=== PATIENT | female | born 1960 | race Caucasian/White ===

== ENCOUNTER 2016-04-16 05:17 | Emergency (ER) | payer SELFPAY ==
[~2016-04-16] VITALS: Ht 165.1 cm; Wt 73.0 kg
[~2016-04-16 05:17] MED LIST: ASAC800T PO; ATEN1TAB75 PO; FOLI1TAB PO; KLOR20TA6 PO; LEXA20TA PO; LORA-475 PO; PERC10TA27 PO; PROM25SU8 PO; ZOFR4TAB3 SL
[2016-04-16 05:21] VITALS: BP 137/63; PULSE 71; RESP 18; TEMP 98; O2SAT 95
[2016-04-16] MEDS ORDERED: ONDANSETRON HCL 4 MG/2 ML VIAL IVP ONE (09:15)
[2016-04-16] MEDS ORDERED: SODIUM CHLORIDE 0.9% FLUSH 5 ML FLUSH IVF PRN (09:15)
[2016-04-16] MEDS ORDERED: FAMOTIDINE 20 MG TAB PO ONE (09:15)
[2016-04-16] MEDS ORDERED: ZOFR4TAB3 SL (09:18)
[2016-04-16] MEDS ORDERED: RANI150C PO (09:18)
--- NOTE | 2016-04-16 09:18 | PD ---
HPI Chief Complaint: Chest Pain Time Seen by Provider: 09:03 Travel History International Travel<30 days: No Contact w/Intl Traveler<30days: No Traveled to known affect area: No History of Present Illness HPI 55 old woman who presents to the emergency department complaining of epigastric abdominal/chest pain radiating into both rib cages along the costal margin and into her back. States the pain feels deep, and her bones. Symptoms been constant since yesterday. No exacerbating or alleviating factors. She does dorsal decreased appetite. Denies history of previous similar symptoms. Only abdominal surgical history prescription hysterectomy. She states she has a history of hypertension, RA, UC, she is on Percocet and sulfasalazine. History Past Medical History Narrative Medical Hypertension RA UC Menopausal: Yes : 1 Para: 0 Dilation and Curettage (D&C): Yes Social History Alcohol Use: No Tobacco Use: Yes (1 PPD) Allergies-Medications (Allergen,Severity, Reaction): Coded Allergies: Bee Sting (Verified Allergy, Severe, SWELLING, 04/16/16) Dairy (Verified Allergy, Severe, 04/16/16) Darvocet-N 100 (Verified Allergy, Severe, RASH, 04/16/16) Morphine (Verified Allergy, Severe, RASH, 04/16/16) Penicillin (Verified Allergy, Severe, RASH, 04/16/16) Prednisone (Verified Allergy, Severe, RASH, 04/16/16) Toradol (Verified Allergy, Severe, RASH, 04/16/16) Ultram (Verified Allergy, Severe, RASH, 04/16/16) Tramadol (Verified Allergy, Intermediate, 04/16/16) Bentyl (Unverified Allergy, Unknown, 04/16/16) Uncoded Allergies: demoral (Allergy, Unknown, 03/15/15) Reported Meds & Prescriptions Reported Meds & Active Scripts Active Ranitidine (Ranitidine HCl) 150 Mg Cap 150 Mg PO BID Zofran Odt (Ondansetron Odt) 4 Mg Tab 4 Mg SL Q8HR PRN May substitute non-ODT form. K-Dur (Potassium Chloride) 20 Meq Tabcr 20 Meq PO DAILY Zofran ODT (Ondansetron HCl) 4 Mg Tab 4 Mg SL Q6H PRN FOR NAUSEA/VOMITING Promethazine Hcl (Promethazine HCl) 25 Mg Tab 1 Tab PO Q6HPRN Reported Percocet 10-325 mg (Oxycodone-Acetaminophen 10-325 mg) Oxycodone 10/325 Acetaminophen Tab 2 Tab PO Q4H PRN Asacol Hd (Mesalamine) 800 Mg Tab 500 Mg PO BID Folate (Folic Acid) 1 Mg Tab 1 Mg PO DAILY Lexapro (Escitalopram Oxalate) 20 Mg Tab 25 Mg PO DAILY Tenormin (Atenolol) 100 Mg Tab 50 Mg PO DAILY Ativan (Lorazepam) 2 Mg Tab 2 Mg PO BIDPRN Review of Systems Except as stated in HPI: all other systems reviewed are Neg Physical Exam Narrative GENERAL: Well-appearing 55 old woman, no acute distress. SKIN: Warm and dry. HEAD: Atraumatic. Normocephalic. CARDIOVASCULAR: Regular rate and rhythm. No murmur appreciated. RESPIRATORY: No accessory muscle use. Clear to auscultation. Breath sounds equal bilaterally. GASTROINTESTINAL: Normal contour and appearance. Abdomen is soft. There is mild epigastric tenderness. NEUROLOGICAL: Awake and alert. No obvious cranial nerve deficits. Motor grossly within normal limits. Normal speech. PSYCHIATRIC: Appropriate mood and affect; insight and judgment normal. Data Data Last Documented VS Vital Signs Date Time Temp Pulse Resp B/P Pulse Ox O2 Delivery O2 Flow Rate FiO2 04/16/16 05:21 98.0 71 18 137/63 95 Room Air Orders Electrocardiogram (04/16/16 ) Complete Blood Count With Diff (04/16/16 09:11) Comprehensive Metabolic Panel (04/16/16 09:11) Lipase (04/16/16 09:11) Iv Access Insert/Monitor (04/16/16 09:11) Ondansetron Inj (Zofran Inj) (04/16/16 09:15) Sodium Chloride 0.9% Flush (Ns Flush) (04/16/16 09:15) Famotidine (Pepcid) (04/16/16 09:15) Troponin I (04/16/16 09:11) Chest, Pa & Lat (04/16/16 ) Ed Poc Ultrasound (04/16/16 ) Labs Laboratory Tests Test 04/16/16 09:28 White Blood Count 7.6 TH/MM3 Red Blood Count 3.60 MIL/MM3 Hemoglobin 10.8 GM/DL Hematocrit 30.4 % Mean Corpuscular Volume 84.5 FL Mean Corpuscular Hemoglobin 30.1 PG Mean Corpuscular Hemoglobin 35.6 % Concent Red Cell Distribution Width 14.2 % Platelet Count 330 TH/MM3 Mean Platelet Volume 6.6 FL Neutrophils (%) (Auto) 53.4 % Lymphocytes (%) (Auto) 38.3 % Monocytes (%) (Auto) 5.4 % Eosinophils (%) (Auto) 2.4 % Basophils (%) (Auto) 0.5 % Neutrophils # (Auto) 4.0 TH/MM3 Lymphocytes # (Auto) 2.9 TH/MM3 Monocytes # (Auto) 0.4 TH/MM3 Eosinophils # (Auto) 0.2 TH/MM3 Basophils # (Auto) 0.0 TH/MM3 CBC Comment DIFF FINAL Differential Comment Sodium Level 137 MEQ/L Potassium Level 4.6 MEQ/L Chloride Level 104 MEQ/L Carbon Dioxide Level 26.0 MEQ/L Anion Gap 7 MEQ/L Blood Urea Nitrogen 32 MG/DL Creatinine 1.15 MG/DL Estimat Glomerular Filtration 49 ML/MIN Rate Random Glucose 112 MG/DL Calcium Level 8.7 MG/DL Total Bilirubin 0.1 MG/DL Aspartate Amino Transf 7 U/L (AST/SGOT) Alanine Aminotransferase 13 U/L (ALT/SGPT) Alkaline Phosphatase 99 U/L Troponin I LESS THAN 0.02 NG/ML Total Protein 7.3 GM/DL Albumin 3.6 GM/DL Lipase 76 U/L MDM Medical Decision Making Medical Screen Exam Complete: Yes Emergency Medical Condition: Yes Interpretation(s) My review of EKG: Normal sinus rhythm at a rate of 62, normal axis, normal intervals, no acute ischemia. LABS: CBC remarkable for mild anemia. CMP remarkable for mildly elevated BUN and creatinine Troponin negative lipase normal Differential Diagnosis Gastritis, gastroenteritis, Crohn's flare, pancreatitis, cholecystitis, other Narrative Course Medical decision making 55 old woman presents emergent department complaining of epigastric pain radiating into her costal margin on both sides with nausea and vomiting. He says history of hypertension or rate UC. Symptoms are not exertional, or otherwise suggestive of ACS. We'll check EKG and troponin. Patient has multiple previous ED visits for nonspecific abdominal pain with negative workups. Suspect normal labs. Consider point of care ultrasound of the gallbladder. Likely discharge. Chest x-ray: No acute disease. Procedures Procedure Narrative Point of care ultrasound: Focus transabdominal ultrasounds performed by me at the bedside to evaluate for potential gallbladder pathology. Gallbladder do look a little bit thickened, 0.4 cm, but contracted. No pericholecystic fluid. No gallstones. No focal tenderness. Diagnosis Primary Impression: Gastritis Qualified Code: K29.00 - Acute gastritis without hemorrhage, unspecified gastritis type Additional Impression: Nausea & vomiting Qualified Code: R11.2 - Non-intractable vomiting with nausea, unspecified vomiting type Additional Instructions: Use Zofran as needed for nausea or vomiting. Take ranitidine as prescribed. Continue your current medications. Follow-up with your primary doctor in the next 2-4 days. Med/Other Pt SpecificInfo: Prescription(s) given Scripts Ranitidine 150 Mg [id number] Mg PO BID #60 CAP Prov:Cory Lockett MD 04/16/16 Ondansetron Odt (Zofran Odt)4 Mg Tab4 Mg SL Q8HR PRN (Nausea/Vomiting) #15 TAB May substitute non-ODT form. Prov:Cory Lockett MD 04/16/16 Disposition: 01 DISCHARGE HOME Condition: Stable Cory Lockett MD Apr 16, 2016 09:18
--- NOTE | 2016-04-16 09:51 | RADRPT ---
EXAM DATE/TIME: 04/16/2016 09:34 [facility] COMPARISON: No previous studies available for comparison. INDICATIONS : Patient complains of chest pain, abdominal pain, and vomiting. MEDICAL HISTORY : None. SURGICAL HISTORY : None. ENCOUNTER: Initial ACUITY: 2 days PAIN SCORE: 4/10 LOCATION: chest FINDINGS: PA and lateral views of the chest demonstrate the lungs to be symmetrically aerated without evidence of mass, infiltrate or effusion. The cardiomediastinal contours are unremarkable. Osseous structure s are intact. CONCLUSION: No acute disease. Jeb Augustin MD FACR on April 16, 2016 at 9:49 Board Certified Radiologist. This report was verified electronically.
[2016-04-16 09:53] LABS: BASOPHIL % 0.5 % (0.0-2.0); EOSINOPHIL # 0.2 TH/MM3 (0-0.4); EOSINOPHIL % 2.4 % (0.0-4.0); HEMATOCRIT 30.4 % (35.0-46.0); HEMO FLAGS DIFF FINAL; LYMPH % 38.3 % (9.0-44.0); LYMPHOCYTE # 2.9 TH/MM3 (1.0-4.8); MEAN CELL VOLUME 84.5 FL (80.0-100.0); MEAN CORPUSCULAR HEMOGLOBIN 30.1 PG (27.0-34.0); MEAN CORPUSCULAR HGB CONC 35.6 % (32.0-36.0); MONO % 5.4 % (0.0-8.0); NEUT % 53.4 % (16.0-70.0); PLATELET COUNT 330 TH/MM3 (150-450); RED CELL DISTRIBUTION WIDTH 14.2 % (11.6-17.2); WHITE BLOOD COUNT 7.6 TH/MM3 (4.0-11.0)
[2016-04-16 10:08] LABS: ANION GAP 7 MEQ/L (5-15); AST (GOT) 7 U/L (15-37); BLOOD UREA NITROGEN 32 MG/DL (7-18); CHLORIDE 104 MEQ/L (98-107); GLOMERULAR FILTRATION RATE 49 ML/MIN (>89); POTASSIUM 4.6 MEQ/L (3.5-5.1); SODIUM (NA) 137 MEQ/L (136-145)
[2016-04-16 10:13] LABS: ALKALINE PHOSPHATASE 99 U/L (45-117); ALT (GPT) 13 U/L (10-53); TOTAL BILIRUBIN ADULT 0.1 MG/DL (0.2-1.0)
--- NOTE | 2016-04-16 14:16 | EKG ---
Date Performed: 04/16/2016 Time Performed: 05:52:14 PTAGE: 55 years EKG: Sinus rhythm POSSIBLE LEFT ATRIAL ENLARGEMENT POSSIBLE RIGHT VENTRICULAR CONDUCTION DELAY BORDERLINE ECG PREVIOUS TRACING : 04/25/2014 00.29 Since previous tracing, no significant change noted DOCTOR: Maksim Polanco Interpretating Date/Time 04/16/2016 14:15:36
== END 2016-04-16 10:54 | disposition home or self-care (01) ==
LOC: NEPC 05:17
DX: K29.00 Acute gastritis without bleeding (principal); R11.2 Nausea with vomiting, unspecified; I10 Essential (primary) hypertension; M06.9 Rheumatoid arthritis, unspecified; K51.90 Ulcerative colitis, unspecified, without complications; R94.31 Abnormal electrocardiogram [ECG] [EKG]; F17.200 Nicotine dependence, unspecified, uncomplicated
CPT/HCPCS: 71020; 80053; 83690; 84484; 85025; 93005; 96374; 99284; J2405